=== PATIENT | female | born 1980 | race Caucasian/White ===

== ENCOUNTER → 2022-04-25 | Day surgery (SDC) | payer OTHER ==
[~2022-04-25] VITALS: Ht 175 cm; Wt 99.0 kg
[~2022-04-25] MED LIST: ESCITALOPRAM OX10 MG MT; IBUPROFEN800 M1 PO; LEXAPRO 10MG TA10 MG PO; ONDANSETRON ODT4 MG PO
[2022-04-25 10:52] LABS: HCG (URINE) SCREEN NEGATIVE (NEGATIVE)
== END | disposition home or self-care (01) ==
LOC: FAS 10:29
PROVIDERS: Obstetrics & Gynecology
DX: N93.9 Abnormal uterine and vaginal bleeding, unspecified (principal)
CPT/HCPCS: 84703; 93005; J1100; J1885; J2250; J2405; J2704; J3010; J7120